=== PATIENT | male | born 1975 | race American Indian/Alaskan Native ===

== ENCOUNTER 2016-12-16 14:59 | Emergency (ER) | payer OTHER ==
[2016-12-16] MEDS ORDERED: TORADOL IM ONE (15:54)
[2016-12-16] MEDS ORDERED: NORCO 7.5/325 PO ONE (15:54)
[2016-12-16] MEDS ORDERED: FLEXERIL PO ONE (15:54)
--- NOTE | 2016-12-16 16:32 | XRay Report ---
FINAL REPORT EXAM: XR SPINE LUMBOSACRAL 2-3V HISTORY: back pain TECHNIQUE: AP, lateral and coned-down views of the lumbar spine PRIORS: None. FINDINGS: There are 6 lumbar type vertebral bodies which is a normal variant. The vertebral body heights and disc spaces are well maintained. The alignment is normal. No evidence for spondylolysis or spondylolisthesis is seen. Pedicles are intact bilaterally at all levels. The paraspinal soft tissues are unremarkable. IMPRESSION: Normal lumbar spine.
[2016-12-16 16:50] LABS: Bilirubin,Urine NEG (Negative); Blood,Urine NEG (Negative); Ketones,Urine NEG (Negative); Leukocyte Esterase,Urine NEG (Negative); Mucus,Urine 3+ /HPF; Nitrite,Urine NEG (Negative); Urobilinogen,Urine < 2.0 mg/dL (<2.0)
--- NOTE | 2016-12-16 17:01 | Emergency Department Report ---
ED Back Pain/Injury HPI - General Chief Complaint: Back Pain/Injury Stated Complaint: GROIN AND LOWER BACK PAIN Source: patient Limitations: No Limitations - History of Present Illness Initial Comments: 41 year old male presents to ED with back pain x 2days with movement. patient states he works at [employer] and does heavy lifting very often. patient denies trauma. patient is stable, neurologically intact and in no acute distress. patient is ambulatory and states he walked here today from his apartment complex. patient states the back pain will at times radiate to his groin area but denies testicular pain, testicular swelling, dysuria, penile discharge. MD Complaint: back pain -: Gradual Similar Symptoms Previously: No Radiation: groin Severity: mild Quality: aching Consistency: intermittent Improves With: none Worsens With: movement Associated Symptoms: denies other symptoms - Related Data Previous Rx's Medication Instructions Recorded Last Taken Type Cephalexin [Keflex] 500 mg PO Q6H #40 capsule 01/07/14 Unknown Rx HYDROcodone/ACETAMINOPHEN [[place] 1 each PO Q6HR #20 tablet 01/07/14 Unknown Rx 5/325 Tablet] Ibuprofen [Motrin] 600 mg PO Q8H PRN #60 tablet 01/07/14 Unknown Rx Ketorolac [Toradol] 10 mg PO Q6H PRN #20 tablet 12/16/16 Unknown Rx methOCARBAMOL [Robaxin TAB] 500 mg PO BID #20 tab 12/16/16 Unknown Rx Allergies Allergy/AdvReac Type Severity Reaction Status Date / Time No Known Allergies Allergy Unverified 01/07/14 16:15 ED Review of Systems ROS: Stated complaint: GROIN AND LOWER BACK PAIN Other details as noted in HPI Constitutional: denies: chills, fever Eyes: denies: eye pain, eye discharge, vision change ENT: denies: ear pain, throat pain Respiratory: denies: cough, shortness of breath, wheezing Cardiovascular: denies: chest pain, palpitations Endocrine: no symptoms reported Gastrointestinal: denies: abdominal pain, nausea, diarrhea Genitourinary: denies: urgency, dysuria Musculoskeletal: back pain. denies: joint swelling Skin: denies: rash, lesions Neurological: denies: headache, weakness, paresthesias, abnormal gait Psychiatric: denies: anxiety, depression Hematological/Lymphatic: denies: easy bleeding, easy bruising ED Past Medical Hx - Past Medical History Previous Medical History?: Yes Additional medical history: Back pain and groin pain - Surgical History Past Surgical History?: No - Social History Smoking Status: Never Smoker Substance Use Type: Non Opiate Pain - Medications Home Medications: Home Medications Medication Instructions Recorded Confirmed Last Taken Type Cephalexin [Keflex] 500 mg PO Q6H #40 capsule 01/07/14 Unknown Rx HYDROcodone/ACETAMINOPHEN [[place] 1 each PO Q6HR #20 tablet 01/07/14 Unknown Rx 5/325 Tablet] Ibuprofen [Motrin] 600 mg PO Q8H PRN #60 tablet 01/07/14 Unknown Rx Ketorolac [Toradol] 10 mg PO Q6H PRN #20 tablet 12/16/16 Unknown Rx methOCARBAMOL [Robaxin TAB] 500 mg PO BID #20 tab 12/16/16 Unknown Rx ED Physical Exam - General Limitations: No Limitations General appearance: alert, in no apparent distress - Head Head exam: Present: atraumatic, normocephalic - Eye Eye exam: Present: normal appearance - ENT ENT exam: Present: mucous membranes moist - Neck Neck exam: Present: normal inspection - Respiratory Respiratory exam: Present: normal lung sounds bilaterally. Absent: respiratory distress - Cardiovascular Cardiovascular Exam: Present: regular rate, normal rhythm. Absent: systolic murmur, diastolic murmur, rubs, gallop - GI/Abdominal GI/Abdominal exam: Present: soft, normal bowel sounds. Absent: tenderness - Rectal Rectal exam: Present: deferred - Extremities Exam Extremities exam: Present: normal inspection - Back Exam Back exam: Present: full ROM, paraspinal tenderness. Absent: CVA tenderness (R) , CVA tenderness (L), vertebral tenderness - Neurological Exam Neurological exam: Present: alert, oriented X3, CN II-XII intact, normal gait, reflexes normal - Psychiatric Psychiatric exam: Present: normal affect, normal mood - Skin Skin exam: Present: warm, dry, intact, normal color. Absent: rash ED Course Vital Signs 12/16/16 12/16/16 15:04 17:36 Temperature 98.9 F 100.4 F H Pulse Rate 105 H 69 Respiratory 20 16 Rate Blood Pressure 128/81 Blood Pressure 123/73 [Right] O2 Sat by Pulse 98 100 Oximetry ED Medical Decision Making - Lab Data Lab Results 12/16/16 Range/Units 16:20 Urine Color Yellow (Yellow) Urine Turbidity Clear (Clear) Urine pH 5.0 (5.0-7.0) Ur Specific [place] 1.031 H (1.003-1.030) Urine Protein 30 mg/dl (Negative) mg/dL Urine Glucose (UA) Neg (Negative) mg/dL Urine Ketones Neg (Negative) mg/dL Urine Blood Neg (Negative) Urine Nitrite Neg (Negative) Urine Bilirubin Neg (Negative) Urine Urobilinogen < 2.0 (<2.0) mg/dL Ur Leukocyte Esterase Neg (Negative) Urine WBC (Auto) 2.0 (0.0-6.0) /HPF Urine RBC (Auto) 5.0 (0.0-6.0) /HPF Urine Mucus 3+ /HPF Temp Pulse Resp BP Pulse Ox 100.4 F H 69 16 123/73 100 12/16/16 17:36 12/16/16 17:36 12/16/16 17:36 12/16/16 17:36 12/16/16 17:36 - Radiology Data Radiology results: report reviewed xr lumbar normal lumbar spine per radiologist. alignment normal. paraspinal soft tissues are unremarkable. disc spaces are well maintained. - Medical Decision Making 41 year old with negative imaging studies of lumbar spine and no signs of UTI. patient is stable, ambulatory, neurologically intact and in no acute distress. patient will be discharged with pain medication and muscle relaxant. patient's temp was rechecked prior to discharge and was 97F orally. Critical care attestation.: If time is entered above; I have spent that time in minutes in the direct care of this critically ill patient, excluding procedure time. ED Disposition Clinical Impression: Lumbar strain Qualifiers: Encounter type: initial encounter Qualified Code(s): S39.012A - Strain of muscle, fascia and tendon of lower back, initial encounter Disposition: DISCHARGED TO HOME OR SELFCARE Is pt being admited?: No Does the pt Need Aspirin: No Condition: Stable Instructions: Muscle Strain (ED) Prescriptions: Ketorolac [Toradol] 10 mg PO Q6H PRN #20 tablet PRN Reason: Pain methOCARBAMOL [Robaxin TAB] 500 mg PO BID #20 tab Referrals: PRIMARY CARE, [Primary Care Provider] - 3-5 Days Forms: Work/School Release Form(ED)
[2016-12-16 17:54] VITALS: BP 117/70
== END 2016-12-16 17:53 | disposition home or self-care (01) ==
LOC: ED 14:59
DX: S39.012A Strain of muscle, fascia and tendon of lower back, initial encounter (principal); X58.XXXA Exposure to other specified factors, initial encounter; Y93.89 Activity, other specified; Y92.89 Other specified places as the place of occurrence of the external cause; Y99.8 Other external cause status
CPT/HCPCS: 72100; 81001; 96372; 99284; J1885

== ENCOUNTER 2016-12-21 10:28 | Emergency (ER) | payer OTHER ==
[2016-12-21 10:44] VITALS: BP 124/73
--- NOTE | 2016-12-21 11:23 | Emergency Department Report ---
ED Medical Clearance HPI - General Chief complaint: Medical Clearance Stated complaint: ED FOLLOW UP Time Seen by Provider: 12/21/16 11:19 Source: patient Mode of arrival: Ambulatory - History of Present Illness Initial comments: 89-year-old male past medical history none presents to the ED. Patient states that he was seen several days ago for lower back pain and treated with anti- inflammatories and muscle relaxants. Patient states he feels significantly better. When I asked the patient why he came to the ER today he stated that he believed that this was his primary care referral as per his discharge paperwork. Patient has no other complaints and has been in usual state of health. Alledged Intoxication: No Compliant with Home Medications: No Home medications: Previous Rx's Medication Instructions Recorded Last Taken Type Cephalexin [Keflex] 500 mg PO Q6H #40 capsule 01/07/14 Unknown Rx HYDROcodone/ACETAMINOPHEN [[place] 1 each PO Q6HR #20 tablet 01/07/14 Unknown Rx 5/325 Tablet] Ibuprofen [Motrin] 600 mg PO Q8H PRN #60 tablet 01/07/14 Unknown Rx Ketorolac [Toradol] 10 mg PO Q6H PRN #20 tablet 12/16/16 Unknown Rx methOCARBAMOL [Robaxin TAB] 500 mg PO BID #20 tab 12/16/16 Unknown Rx Allergies/Adverse reactions: Allergies Allergy/AdvReac Type Severity Reaction Status Date / Time No Known Allergies Allergy Unverified 01/07/14 16:15 ED Review of Systems ROS: Stated complaint: ED FOLLOW UP Other details as noted in HPI Constitutional: denies: chills, fever Eyes: denies: eye pain, eye discharge, vision change ENT: denies: ear pain, throat pain Respiratory: denies: cough, shortness of breath, wheezing Cardiovascular: denies: chest pain, palpitations Endocrine: no symptoms reported Gastrointestinal: denies: abdominal pain, nausea, diarrhea Genitourinary: denies: urgency, dysuria Musculoskeletal: back pain (patient states he experienced lower back pain approximately 3-5 days ago). denies: joint swelling, arthralgia Skin: denies: rash, lesions Neurological: denies: headache, weakness, paresthesias Psychiatric: denies: anxiety, depression Hematological/Lymphatic: denies: easy bleeding, easy bruising ED Past Medical Hx - Past Medical History Previous Medical History?: Yes Additional medical history: Back pain and groin pain - Surgical History Past Surgical History?: No - Social History Smoking Status: Never Smoker Substance Use Type: None - Medications Home Medications: Home Medications Medication Instructions Recorded Confirmed Last Taken Type Cephalexin [Keflex] 500 mg PO Q6H #40 capsule 01/07/14 Unknown Rx HYDROcodone/ACETAMINOPHEN [[place] 1 each PO Q6HR #20 tablet 01/07/14 Unknown Rx 5/325 Tablet] Ibuprofen [Motrin] 600 mg PO Q8H PRN #60 tablet 01/07/14 Unknown Rx Ketorolac [Toradol] 10 mg PO Q6H PRN #20 tablet 12/16/16 Unknown Rx methOCARBAMOL [Robaxin TAB] 500 mg PO BID #20 tab 12/16/16 Unknown Rx ED Physical Exam - General Limitations: No Limitations General appearance: alert, in no apparent distress - Head Head exam: Present: atraumatic, normocephalic - Eye Eye exam: Present: normal appearance - ENT ENT exam: Present: mucous membranes moist - Neck Neck exam: Present: normal inspection, full ROM - Respiratory Respiratory exam: Present: normal lung sounds bilaterally. Absent: respiratory distress - Cardiovascular Cardiovascular Exam: Present: regular rate, normal rhythm. Absent: systolic murmur, diastolic murmur, rubs, gallop - GI/Abdominal GI/Abdominal exam: Present: soft, normal bowel sounds - Rectal Rectal exam: Present: deferred - Extremities Exam Extremities exam: Present: normal inspection - Back Exam Back exam: Present: normal inspection - Neurological Exam Neurological exam: Present: alert, oriented X3, CN II-XII intact, normal gait - Psychiatric Psychiatric exam: Present: normal affect, normal mood - Skin Skin exam: Present: warm, dry, intact, normal color. Absent: rash ED Course Vital Signs 12/21/16 10:39 Temperature 98.4 F Pulse Rate 81 Respiratory 16 Rate Blood Pressure 124/73 O2 Sat by Pulse 100 Oximetry ED Medical Decision Making - Medical Decision Making A/P: Worried well visit 1-patient given primary care referrals, I explained to patient that it is not typical to follow-up in the ER unless there is an urgent or emergent issue 2-pt states he feels significantly better from his lower back pain and has no new complaints ED Disposition Clinical Impression: Worried well, Unavailability of primary care appointment Disposition: DISCHARGED TO HOME OR SELFCARE Is pt being admited?: No Does the pt Need Aspirin: No Condition: Stable Referrals: POWER ADAMS MD [Staff Physician] - 3-5 Days [facility] [Outside] - 3-[address] [facility] [Outside] - 3-5 Days Forms: Work/School Release Form(ED) Time of Disposition: 11:22
== END 2016-12-21 11:22 | disposition home or self-care (01) ==
LOC: ED 10:28
DX: Z71.1 Person with feared health complaint in whom no diagnosis is made (principal)
CPT/HCPCS: 99282